=== PATIENT | male | born 1985 | race Hispanic/Latino ===

== ENCOUNTER 2018-01-18 09:12 | Emergency (ER) | payer SELFPAY ==
--- NOTE | 2018-01-18 12:41 | Emergency Department Report ---
Chief Complaint: Nausea/Vomiting/Diarrhea Stated Complaint: LIGHT HEAD/DIZZY Time Seen by Provider: 01/18/18 12:33 - HPI History of Present Illness: 32-year-old male with 1-2 days of nonspecific dizziness/lightheadedness. He also had a few episodes of diarrhea this morning. He denies any sore throat, fever, chest pain, shortness of breath, abdominal pain or rash. Tobacco smoker. was diagnosed with strep by rapid strep test here at [facility] on Thursday, 3 days ago. Patient also admits to a lot of stress at home and work that could be a cause of his symptoms. - ROS Review of Systems: Patient admits to stress, diarrhea and dizziness/lightheadedness Patient denies any chest pain, shortness of breath, fever, abdominal pain, rash , dysuria. - Exam Vital Signs: Vital Signs 01/18/18 09:47 Temperature 97.6 F Pulse Rate 89 Respiratory 16 Rate Blood Pressure 141/81 O2 Sat by Pulse 94 Oximetry MSE screening note: Focused history and physical exam performed. Due to findings the following was ordered: Due to the patient's dizziness/lightheadedness and his exposure to culture positive strep, the patient will receive a CBC, BMP and a rapid strep test. He will remain on the fast track side and will be seen by either myself or one of the mid-level providers. ED Disposition for MSE Condition: Stable Referrals: PRIMARY CARE, [Primary Care Provider] - 3-5 Days
[2018-01-18 13:03] LABS: Basophils % (Auto) 0.3 % (0.0-1.8); Eosinophils # (Auto) 0.1 K/mm3 (0.0-0.4); Hematocrit 42.5 % (35.5-45.6); Hemoglobin 13.9 gm/dl (11.8-15.2); Lymphocytes # (Auto) 3.3 K/mm3 (1.2-5.4); Lymphocytes % (Auto) 26.6 % (13.4-35.0); Mean Corpuscular HGB Conc 33 % (32-34); Mean Corpuscular Hemoglobin 28 pg (28-32); Mean Corpuscular Volume 86 fl (84-94); Monocytes # (Auto) 0.8 K/mm3 (0.0-0.8); Monocytes % (Auto) 6.9 % (0.0-7.3); Platelet Count 320 K/mm3 (140-440); Red Blood Count 4.96 M/mm3 (3.65-5.03); Red Cell Distribution Width 13.6 % (13.2-15.2)
[2018-01-18 13:14] LABS: BUN/Creatinine Ratio 14; Blood Urea Nitrogen 7 mg/dL (9-20); Calcium 8.9 mg/dL (8.4-10.2); Hemolysis Index 10
--- NOTE | 2018-01-18 13:31 | Emergency Department Report ---
ED N/V/D HPI - General Chief complaint: Nausea/Vomiting/Diarrhea Stated complaint: LIGHT HEAD/DIZZY Time Seen by Provider: 01/18/18 12:33 Source: patient Mode of arrival: Ambulatory Limitations: No Limitations - History of Present Illness Initial comments: 32-year-old male presents with complaint of exposure to strep throat and some intermittent dizziness and nausea earlier this week. Patient is currently awake alert and oriented 3 fully lucid and asymptomatic. Denies any nausea abdominal pain chest pain shortness of breath dizziness and lightheadedness blurry vision or headache at this time. Patient is administered without assistance. Patient screened and evaluated by Dr. Maynor frias today MD complaint: nausea, vomiting Onset/Timin -: week(s) Severity: mild Consistency: intermittent Worsens with: none Associated Symptoms: denies other symptoms - Related Data Previous Rx's Medication Instructions Recorded Last Taken Type Albuterol Sulfate [Ventolin HFA] 2 puff IH Q4H PRN #1 hfa.aer.ad 01/17/16 Unknown Rx Azithromycin [Zithromax] 250 mg PO DAILY #1 pkg 01/17/16 Unknown Rx Loratadine [Claritin] 10 mg PO DAILY #30 tablet 01/17/16 Unknown Rx Prednisone [predniSONE 10 mg 10 mg PO .TAPER #1 tab.ds.pk 01/17/16 Unknown Rx (6-Day Pack, 21 Tabs)] Promethazine /Codeine 5 ml PO Q6H PRN #150 ml 01/17/16 Unknown Rx [Phenergan/Codeine 6.25-10 mg/5 ml] Ondansetron [Zofran Odt] 4 mg PO Q8H PRN #10 tab.rapdis 01/18/18 Unknown Rx Allergies Allergy/AdvReac Type Severity Reaction Status Date / Time No Known Allergies Allergy Verified 01/17/16 01:00 ED Review of Systems ROS: Stated complaint: LIGHT HEAD/DIZZY Other details as noted in HPI Constitutional: denies: chills, fever Eyes: denies: eye pain, eye discharge, vision change ENT: denies: ear pain, throat pain Respiratory: denies: cough, shortness of breath, wheezing Cardiovascular: denies: chest pain, palpitations Endocrine: no symptoms reported Gastrointestinal: nausea. denies: abdominal pain, diarrhea Genitourinary: denies: urgency, dysuria Musculoskeletal: denies: back pain, joint swelling, arthralgia Skin: denies: rash, lesions Neurological: other (dizziness). denies: headache, weakness, paresthesias Psychiatric: denies: anxiety, depression Hematological/Lymphatic: denies: easy bleeding, easy bruising ED Past Medical Hx - Past Medical History Previous Medical History?: No - Surgical History Past Surgical History?: No - Social History Smoking Status: Current Every Day Smoker Substance Use Type: None - Medications Home Medications: Home Medications Medication Instructions Recorded Confirmed Last Taken Type Albuterol Sulfate [Ventolin HFA] 2 puff IH Q4H PRN #1 hfa.aer.ad 01/17/16 Unknown Rx Azithromycin [Zithromax] 250 mg PO DAILY #1 pkg 01/17/16 Unknown Rx Loratadine [Claritin] 10 mg PO DAILY #30 tablet 01/17/16 Unknown Rx Prednisone [predniSONE 10 mg 10 mg PO .TAPER #1 tab.ds.pk 01/17/16 Unknown Rx (6-Day Pack, 21 Tabs)] Promethazine /Codeine 5 ml PO Q6H PRN #150 ml 01/17/16 Unknown Rx [Phenergan/Codeine 6.25-10 mg/5 ml] Ondansetron [Zofran Odt] 4 mg PO Q8H PRN #10 tab.rapdis 01/18/18 Unknown Rx ED Physical Exam - General Limitations: No Limitations General appearance: alert, in no apparent distress - Head Head exam: Present: atraumatic, normocephalic - Eye Eye exam: Present: normal appearance, PERRL, EOMI - ENT ENT exam: Present: mucous membranes moist - Neck Neck exam: Present: normal inspection - Respiratory Respiratory exam: Present: normal lung sounds bilaterally. Absent: respiratory distress - Cardiovascular Cardiovascular Exam: Present: regular rate, normal rhythm. Absent: systolic murmur, diastolic murmur, rubs, gallop - GI/Abdominal GI/Abdominal exam: Present: soft, normal bowel sounds - Rectal Rectal exam: Present: deferred - Extremities Exam Extremities exam: Present: normal inspection - Back Exam Back exam: Present: normal inspection - Neurological Exam Neurological exam: Present: alert, oriented X3, CN II-XII intact, normal gait - Expanded Neurological Exam Expanded Patient oriented to: Present: person, place, time Cranial nerves: EOM's Intact: Normal, Facial Sensation: Normal Cerebellar function: Finger to Nose: Normal, Heel to Daniel: Normal, Romberg: Normal Sensory exam: Upper Extremity Light Touch: Normal, Lower Extremity Light Touch: Normal Motor strength exam: RUE: 5, LUE: 5, RLE: 5, LLE: 5 Best Eye Response ([place]): (4) open spontaneously Best Motor Response ([place]): (6) obeys commands Best Verbal Response ([place]): (5) oriented [place] Total: 15 - Psychiatric Psychiatric exam: Present: normal affect, normal mood - Skin Skin exam: Present: warm, dry, intact, normal color. Absent: rash ED Course Vital Signs 01/18/18 09:47 Temperature 97.6 F Pulse Rate 89 Respiratory 16 Rate Blood Pressure 141/81 O2 Sat by Pulse 94 Oximetry ED Medical Decision Making - Lab Data Result diagrams: 01/18/18 12:42 01/18/18 12:42 - Medical Decision Making A/P: Nausea 1-labs unremarkable, strep swab negative, Zofran when necessary 2-follow-up with primary care doctor Critical care attestation.: If time is entered above; I have spent that time in minutes in the direct care of this critically ill patient, excluding procedure time. ED Disposition Clinical Impression: Nausea & vomiting Qualifiers: Vomiting type: unspecified Vomiting Intractability: non-intractable Qualified Code(s): R11.2 - Nausea with vomiting, unspecified Disposition: DC-01 TO HOME OR SELFCARE Is pt being admited?: No Does the pt Need Aspirin: No Condition: Stable Instructions: Acute Nausea and Vomiting (ED) Prescriptions: Ondansetron [Zofran Odt] 4 mg PO Q8H PRN #10 tab.rapdis PRN Reason: Nausea Referrals: [facility] [Outside] - 3-5 Days [facility] [Outside] - 3-5 Days Forms: Accompanied Note, Work/School Release Form(ED) Time of Disposition: 13:57
[2018-01-18 14:04] VITALS: BP 157/79
== END 2018-01-18 14:04 | disposition home or self-care (01) ==
LOC: ED 09:12
DX: R11.2 Nausea with vomiting, unspecified (principal); R42 Dizziness and giddiness; F17.200 Nicotine dependence, unspecified, uncomplicated
CPT/HCPCS: 36415; 80048; 85025; 87116; 87430; 99283

== ENCOUNTER 2019-04-03 14:23 | Emergency (ER) | payer OTHER ==
[2019-04-03 14:47] VITALS: BP 174/102
--- NOTE | 2019-04-03 14:47 | Emergency Department Report ---
Chief Complaint: Abdominal Pain Stated Complaint: STOMACH PAIN/DIARRHEA/POSS WORMS Time Seen by Provider: 04/03/19 14:42 - HPI History of Present Illness: Pt presents for generalized abd pain that began a week ago states he has constant diarrhea no blood in the diarrhea states 10 minutes after he eats begins to have diarrhea no emesis no recent travel, no recent camping, no water from a different source, no recent abx states he has been taking pepto bismol no allergies to medications states he has been told he has high blood pressure, does not take medication denies any other PMHx does not have PCP former smoker, quit a year ago occ drinker no drug use MSE screening note: Focused history and physical exam performed. Due to findings the following was ordered: CBC, CMP, lipase ED Disposition for MSE Condition: Stable
--- NOTE | 2019-04-03 15:08 | Emergency Department Report ---
ED Abdominal Pain HPI - General Chief Complaint: Abdominal Pain Stated Complaint: STOMACH PAIN/DIARRHEA/POSS WORMS Time Seen by Provider: 04/03/19 14:42 Source: patient Mode of arrival: Ambulatory Limitations: No Limitations - History of Present Illness Initial Comments: Patient is 33 years old male with no significant past medical history. Patient presented to the ER complaining of crampy abdominal pain associated with watery diarrhea for the last 7 days. Patient denied any vomiting, fever or chills. Patient stated that he was never been diagnosed with high blood pressure however his blood pressure in the ER is 174/102. Patient denied any chest pain, shortness of breath, headache or weakness or numbness with tingling sensation. MD Complaint: abdominal pain -: week(s) Location: diffuse Radiation: none Migration to: no migration Severity: mild Severity scale (0 -10): 2 Quality: cramping Associated Symptoms: nausea, diarrhea - Related Data Previous Rx's Medication Instructions Recorded Last Taken Type Albuterol Sulfate [Ventolin HFA] 2 puff IH Q4H PRN #1 hfa.aer.ad 01/17/16 Unknown Rx Azithromycin [Zithromax] 250 mg PO DAILY #1 pkg 01/17/16 Unknown Rx Loratadine [Claritin] 10 mg PO DAILY #30 tablet 01/17/16 Unknown Rx Prednisone [predniSONE 10 mg 10 mg PO .TAPER #1 tab.ds.pk 01/17/16 Unknown Rx (6-Day Pack, 21 Tabs)] Promethazine /Codeine 5 ml PO Q6H PRN #150 ml 01/17/16 Unknown Rx [Phenergan/Codeine 6.25-10 mg/5 ml] Ondansetron [Zofran Odt] 4 mg PO Q8H PRN #10 tab.rapdis 01/18/18 Unknown Rx Allergies Allergy/AdvReac Type Severity Reaction Status Date / Time No Known Allergies Allergy Verified 01/17/16 01:00 ED Review of Systems ROS: Stated complaint: STOMACH PAIN/DIARRHEA/POSS WORMS Other details as noted in HPI Comment: All other systems reviewed and negative Constitutional: denies: chills, fever Respiratory: denies: cough, shortness of breath Cardiovascular: denies: chest pain, palpitations Gastrointestinal: abdominal pain, nausea, diarrhea. denies: constipation, hematemesis, hematochezia Musculoskeletal: denies: back pain Neurological: denies: headache, weakness ED Past Medical Hx - Past Medical History Previous Medical History?: No - Surgical History Past Surgical History?: No - Social History Smoking Status: Former Smoker Substance Use Type: Alcohol, Other - Medications Home Medications: Home Medications Medication Instructions Recorded Confirmed Last Taken Type Albuterol Sulfate [Ventolin HFA] 2 puff IH Q4H PRN #1 hfa.aer.ad 01/17/16 Unknown Rx Azithromycin [Zithromax] 250 mg PO DAILY #1 pkg 01/17/16 Unknown Rx Loratadine [Claritin] 10 mg PO DAILY #30 tablet 01/17/16 Unknown Rx Prednisone [predniSONE 10 mg 10 mg PO .TAPER #1 tab.ds.pk 01/17/16 Unknown Rx (6-Day Pack, 21 Tabs)] Promethazine /Codeine 5 ml PO Q6H PRN #150 ml 01/17/16 Unknown Rx [Phenergan/Codeine 6.25-10 mg/5 ml] Ondansetron [Zofran Odt] 4 mg PO Q8H PRN #10 tab.rapdis 01/18/18 Unknown Rx ED Physical Exam - General Limitations: No Limitations General appearance: alert, in no apparent distress - Head Head exam: Present: atraumatic, normocephalic, normal inspection - Eye Eye exam: Present: normal appearance - ENT ENT exam: Present: normal exam, normal orophraynx, mucous membranes moist - Neck Neck exam: Present: normal inspection, full ROM. Absent: tenderness, meningismus, lymphadenopathy, thyromegaly - Respiratory Respiratory exam: Present: normal lung sounds bilaterally - Cardiovascular Cardiovascular Exam: Present: regular rate, normal rhythm, normal heart sounds - GI/Abdominal GI/Abdominal exam: Present: soft, normal bowel sounds. Absent: distended, tenderness, guarding, rebound, rigid - Extremities Exam Extremities exam: Present: normal inspection, full ROM, normal capillary refill - Back Exam Back exam: Present: normal inspection, full ROM. Absent: CVA tenderness (R), CVA tenderness (L) - Neurological Exam Neurological exam: Present: alert, oriented X3, CN II-XII intact, normal gait - Skin Skin exam: Present: warm, intact, normal color ED Course Vital Signs 04/03/19 04/03/19 14:45 14:54 Temperature 98.7 F Pulse Rate 98 H Respiratory 20 17 Rate Blood Pressure 174/102 O2 Sat by Pulse 96 Oximetry ED Medical Decision Making - Lab Data Result diagrams: 04/03/19 15:08 04/03/19 15:08 - Medical Decision Making Patient is 33 years old male with no significant past medical history. Patient presented to the ER complaining of crampy abdominal pain associated with watery diarrhea for the last 7 days. Patient denied any vomiting, fever or chills. Patient stated that he was never been diagnosed with high blood pressure however his blood pressure in the ER is 174/102. Patient denied any chest pain, shortness of breath, headache or weakness or numbness with tingling sensation. Labs reviewed and is unremarkable. Patient's symptoms most likely related to gastroenteritis. I advised the patient to follow-up with his primary care physician in the next 2-3 days and to return to the ER if symptoms are not impr jorden. Critical care attestation.: If time is entered above; I have spent that time in minutes in the direct care of this critically ill patient, excluding procedure time. ED Disposition Clinical Impression: Abdominal pain, Gastroenteritis Disposition: DC-01 TO HOME OR SELFCARE Is pt being admited?: No Condition: Stable Instructions: Gastroenteritis (ED), Abdominal Pain (ED), Hypertension (ED) Referrals: [facility] [Provider Group] - 3-5 Days
[2019-04-03 15:25] LABS: Basophils % (Auto) 0.3 % (0.0-1.8); Eosinophils # (Auto) 0.1 K/mm3 (0.0-0.4); Eosinophils % (Auto) 0.6 % (0.0-4.3); Hematocrit 40.6 % (35.5-45.6); Hemoglobin 13.9 gm/dl (11.8-15.2); Lymphocytes # (Auto) 3.1 K/mm3 (1.2-5.4); Lymphocytes % (Auto) 35.6 % (13.4-35.0); Mean Corpuscular HGB Conc 34 % (32-34); Mean Corpuscular Volume 86 fl (84-94); Monocytes # (Auto) 0.8 K/mm3 (0.0-0.8); Monocytes % (Auto) 9.5 % (0.0-7.3); Platelet Count 315 K/mm3 (140-440); Red Blood Count 4.74 M/mm3 (3.65-5.03); Red Cell Distribution Width 12.9 % (13.2-15.2)
[2019-04-03 15:50] LABS: Alanine Aminotransferase 18 units/L (7-56); Albumin 3.2 g/dL (3.9-5); BUN/Creatinine Ratio 12; Blood Urea Nitrogen 6 mg/dL (9-20); Hemolysis Index 13
== END 2019-04-03 16:19 | disposition home or self-care (01) ==
LOC: ED 14:23
DX: K52.9 Noninfective gastroenteritis and colitis, unspecified (principal); Z87.891 Personal history of nicotine dependence; Z79.899 Other long term (current) drug therapy
CPT/HCPCS: 36415; 80053; 83690; 85025; 99283

== ENCOUNTER 2019-05-05 21:41 | Emergency (ER) | payer SELFPAY ==
[2019-05-05 22:53] VITALS: BP 163/94
[2019-05-06] MEDS ORDERED: BACTRIM DS PO ONE (00:27)
[2019-05-06] MEDS ORDERED: ZOFRAN ODT PO ONE ×2 (00:27→02:05)
[2019-05-06] MEDS ORDERED: XYLOCAINE 1% MPF 5 mL INFILTRATI ONE (00:27)
[2019-05-06] MEDS ORDERED: NORCO 5/325 PO ONE (00:27)
--- NOTE | 2019-05-06 01:36 | Emergency Department Report ---
Upper Extremity - HPI Chief Complaint: Extremity Injury, Upper Stated Complaint: RIGHT MIDDLE FINGER INJURY Time Seen by Provider: 05/06/19 00:15 Upper Extremity: Right Middle Finger (distal swollen rash) Occurred When: 4 Days Mechanism: Other (infected distal right middle finger) Severity: severe Symptoms: Yes Pain with Movement, Yes Swelling, No Deformity, No Limited Range of Movement, No Numbness, No Weakness, No Bruising/Ecchymosis, No Laceration or Abrasion Other History: Patient is a 33-year-old white male with a history of morbid obesity and hypertension who presents to the ED with complaint of acute onset and no swelling erythematous maculopapular rash on distal right middle finger for the last 4 days. Patient denies fever, chills, nausea, vomiting, traumatic injury, right hand weakness, or neck pain. ED Review of Systems ROS: Stated complaint: RIGHT MIDDLE FINGER INJURY Other details as noted in HPI Comment: All other systems reviewed and negative Constitutional: no symptoms reported Eyes: denies: eye pain, eye discharge, vision change ENT: denies: ear pain, throat pain Respiratory: denies: cough, shortness of breath, wheezing Cardiovascular: denies: chest pain, palpitations Endocrine: no symptoms reported Gastrointestinal: denies: abdominal pain, nausea, diarrhea Genitourinary: denies: urgency, dysuria Musculoskeletal: other (patient feels, swollen erythematous maculopapular rash on distal right middle finger). denies: back pain, joint swelling, arthralgia Skin: rash (swollen, erythematous macular papular rash on the Serevent middle finger), change in color. denies: lesions Neurological: denies: headache, weakness, paresthesias Psychiatric: denies: anxiety, depression Hematological/Lymphatic: denies: easy bleeding, easy bruising ED Past Medical Hx - Past Medical History Previous Medical History?: Yes Hx Hypertension: Yes Additional medical history: Obesity - Surgical History Past Surgical History?: No - Social History Smoking Status: Former Smoker Substance Use Type: None - Medications Home Medications: Home Medications Medication Instructions Recorded Confirmed Last Taken Type Albuterol Sulfate [Ventolin HFA] 2 puff IH Q4H PRN #1 hfa.aer.ad 01/17/16 Unknown Rx Azithromycin [Zithromax] 250 mg PO DAILY #1 pkg 01/17/16 Unknown Rx Loratadine [Claritin] 10 mg PO DAILY #30 tablet 01/17/16 Unknown Rx Prednisone [predniSONE 10 mg 10 mg PO .TAPER #1 tab.ds.pk 01/17/16 Unknown Rx (6-Day Pack, 21 Tabs)] Promethazine /Codeine 5 ml PO Q6H PRN #150 ml 01/17/16 Unknown Rx [Phenergan/Codeine 6.25-10 mg/5 ml] Ondansetron [Zofran Odt] 4 mg PO Q8H PRN #10 tab.rapdis 01/18/18 Unknown Rx Diphenoxylate/Atropine [Lomotil] 1 tab PO Q4H PRN #12 tablet 04/03/19 Unknown Rx Lisinopril/Hydrochlorothiazide 1 tab PO QDAY #30 tab 04/03/19 Unknown Rx [Zestoretic 20-25 mg] Acetaminophen/Codeine [Tylenol 1 tab PO Q6H PRN #15 tab 05/06/19 Unknown Rx /Codeine # 3 tab] Ibuprofen [Motrin] 800 mg PO Q8HR PRN #20 tablet 05/06/19 Unknown Rx Sulfamethoxazole/Trimethoprim 1 each PO Q12H #20 tablet 05/06/19 Unknown Rx [Bactrim DS TAB] Upper Extremity Exam - Exam General: Vital signs noted. No distress. Alert and acting appropriately. Head and Torso: No HEENT Abnormality, No Neck Tenderness, No Chest/Lungs Abnormality, No Abdominal Tenderness, No Back Tenderness Shoulder Exam: Yes Normal Range of Motion in Shoulder, No Shoulder Tenderness, No Clavicle Tenderness, No Shoulder Deformity, No AC Joint Tenderness Arm Exam: No Arm/Humerus Tenderness, No Arm Deformity Elbow: No Elbow Tenderness, No Normal Range of Motion in Elbow, No Elbow Deformity Forearm: No Forearm Tenderness, No Forearm Deformity, No Pain with Pronation, No Pain with Supination Wrist: Yes Normal ROM in Wrist, No Wrist Tenderness, No Wrist Deformity, No Snuffbox Tenderness, No Pain with Axial Thumb Compression Hand: Yes Digit Tenderness (right middle finger due to erythematous rash), Yes Normal ROM in Digit(s), No Hand Tenderness, No Hand Deformity, No Digit(s) Deformity, No Tendon Dysfunction CMS Exam: Yes Normal Distal Pulses, Yes Normal Capillary Refill, Yes Normal Distal Sensation, No Broken Skin ED Course Vital Signs 05/05/19 22:51 Temperature 98 F Pulse Rate 102 H Respiratory 20 Rate Blood Pressure 163/94 O2 Sat by Pulse 96 Oximetry - Reevaluation(s) Reevaluation #1: 05/06/19 01:37 Patient is alert and oriented 3 and is not in any distress but slightly tachycardic in triage. Patient was treated for pain in the ED and is obviously depressed also antibiotics by mouth. The swollen erythematous rash was incised and drained, and the patient tolerated the procedure well. Patient was discharged home on antibiotics and pain medications and advised to follow up with his primary care physician in 5-7 days for reevaluation or return to the ED immediately if symptoms get worse. 05/06/19 01:37 - I & D Right Dorsal Finger Type of Procedure: Simple Site: distal right middle finger Blade Size: 11 I & D Procedure: betadine prep, sterile drapes applied, sterile dressing applied, gauze wick placed Progress: Patient tolerated procedure well. ED Medical Decision Making - Medical Decision Making Patient is alert and oriented 3 and is not in any distress but slightly tachycardic in triage. Patient was treated for pain in the ED and is obviously depressed also antibiotics by mouth. The swollen erythematous rash was incised and drained, and the patient tolerated the procedure well. Patient was discharged home on antibiotics and pain medications and advised to follow up with his primary care physician in 5-7 days for reevaluation or return to the ED immediately if symptoms get worse. - Differential Diagnosis Paronychia of right middle ; Cellulitis of right finger Critical care attestation.: If time is entered above; I have spent that time in minutes in the direct care of this critically ill patient, excluding procedure time. ED Disposition Clinical Impression: Paronychia of right middle finger, Cellulitis of right middle finger Disposition: DC-01 TO HOME OR SELFCARE Is pt being admited?: No Does the pt Need Aspirin: No Condition: Stable Instructions: Paronychia (ED), Cellulitis (ED) Additional Instructions: Take Medications with food, drink plenty of fluids and follow up with your primary care physician in 7-10 days for reevaluation. Return to the ED immediately if symptoms get worse. Otherwise return to the ED in 2 days for wound recheck and packing removal. Prescriptions: Sulfamethoxazole/Trimethoprim [Bactrim DS TAB] 1 each PO Q12H #20 tablet Ibuprofen [Motrin] 800 mg PO Q8HR PRN #20 tablet PRN Reason: Pain , Severe (7-10) Acetaminophen/Codeine [Tylenol /Codeine # 3 tab] 1 tab PO Q6H PRN #15 tab PRN Reason: Pain , Severe (7-10) Referrals: PILO GILLIAM MD [Primary Care Provider] - 3-5 Days Time of Disposition: 02:47 Print Language: FAROESE
== END 2019-05-06 03:00 | disposition home or self-care (01) ==
LOC: ED 21:41
DX: L03.011 Cellulitis of right finger (principal); I10 Essential (primary) hypertension; E66.01 Morbid (severe) obesity due to excess calories; Z68.43 Body mass index [BMI] 50.0-59.9, adult; Z87.891 Personal history of nicotine dependence
CPT/HCPCS: Q0162

== ENCOUNTER 2019-10-03 18:26 | Emergency (ER) | payer SELFPAY ==
--- NOTE | 2019-10-03 19:11 | Emergency Department Report ---
Blank Doc - Documentation Documentation: This is a 33-year-old male that presents with left finger paronychia. This initial assessment/diagnostic orders/clinical plan/treatment(s) is/are subject to change based on patient's health status, clinical progression and re- assessment by fellow clinical providers in the ED. Further treatment and workup at subsequent clinical providers discretion. Patient/guardians urged not to elope from the ED as their condition may be serious if not clinically assessed and managed. Initial orders include: 1- Patient sent to [facility] for further evaluation and treatment
[2019-10-03] MEDS ORDERED: oxyCODONE /ACETAMINOPHEN 5-325MG TAB PO ONE (22:20)
[2019-10-03] MEDS ORDERED: ONDANSETRON 4 MG ODT TAB PO ONE (22:20)
[2019-10-03] MEDS ORDERED: LIDOCAINE-MPF (1%) 10 MG/1 ML VIAL 5 ML INFILTRATI ONE (22:20)
[2019-10-03] MEDS ORDERED: SULFAMETHOXAZOLE/TRIMETHOPRIM 800/160MG DS TAB PO ONE (22:20)
[2019-10-04] MEDS ORDERED: ONDANSETRON 4 MG ODT TAB PO ONE (01:38)
[2019-10-04] MEDS ORDERED: ONDANSETRON 4 MG ODT TAB ONE (01:39)
--- NOTE | 2019-10-04 02:04 | Emergency Department Report ---
ED Extremity Problem HPI - General Chief complaint: Extremity Problem,Nontraumatic Stated complaint: FINGER/INFECTED/SWOLLEN Time Seen by Provider: 10/03/19 19:09 Source: patient Mode of arrival: Ambulatory Limitations: No Limitations - History of Present Illness Initial comments: Patient is a 33-year-old morbidly obese white male who presents to the ED with Caro of acute onset persistent painful swollen and erythematous maculopapular rash on distal left middle finger for the last 1 week after a contaminated knife at work punctured his distal left middle finger. Patient states that in the last 3 days the pain and swelling with redness have worsened in the left middle finger. Patient denies fever, chills, nausea, vomiting, numbness and tingling or weakness of left middle finger, dizziness or shortness of breath. MD Complaint: extremity pain (left middle finger pain, swelling with erythematous rash), extremity swelling (left middle finger erythematous rash with pain and swelling), joint swelling -: Sudden, week(s) (1) Location: left, upper extremity (left middle finger swelling, erythematous rash and pain) History of Same: Yes -: Yes arthralgia, No fever, No associated dyspnea, No associated chest pain Severity scale (0 -10): 7 Quality: aching, sharp, constant Consistency: constant Improves with: nothing Worsens with: nothing Associated Symptoms: denies other symptoms. denies: chest pain, shortness of breath, myalgias, arthralgias - Related Data Previous Rx's Medication Instructions Recorded Last Taken Type Albuterol Sulfate [Ventolin HFA] 2 puff IH Q4H PRN #1 hfa.aer.ad 01/17/16 Unknown Rx Azithromycin [Zithromax] 250 mg PO DAILY #1 pkg 01/17/16 Unknown Rx Loratadine [Claritin] 10 mg PO DAILY #30 tablet 01/17/16 Unknown Rx Prednisone [predniSONE 10 mg 10 mg PO .TAPER #1 tab.ds.pk 01/17/16 Unknown Rx (6-Day Pack, 21 Tabs)] Promethazine /Codeine 5 ml PO Q6H PRN #150 ml 01/17/16 Unknown Rx [Phenergan/Codeine 6.25-10 mg/5 ml] Ondansetron [Zofran Odt] 4 mg PO Q8H PRN #10 tab.rapdis 01/18/18 Unknown Rx Diphenoxylate/Atropine [Lomotil] 1 tab PO Q4H PRN #12 tablet 04/03/19 Unknown Rx Lisinopril/Hydrochlorothiazide 1 tab PO QDAY #30 tab 04/03/19 Unknown Rx [Zestoretic 20-25 mg] Acetaminophen/Codeine [Tylenol 1 tab PO Q6H PRN #12 tab 10/04/19 Unknown Rx /Codeine # 3 tab] Ibuprofen [Motrin 800 MG tab] 800 mg PO Q8HR PRN #24 tablet 10/04/19 Unknown Rx Sulfamethoxazole/Trimethoprim 1 each PO Q12H #20 tablet 10/04/19 Unknown Rx [Bactrim DS TAB] Allergies Allergy/AdvReac Type Severity Reaction Status Date / Time No Known Allergies Allergy Verified 01/17/16 01:00 ED Review of Systems ROS: Stated complaint: FINGER/INFECTED/SWOLLEN Other details as noted in HPI Constitutional: denies: chills, fever Eyes: denies: eye pain, eye discharge, vision change ENT: denies: ear pain, throat pain Respiratory: denies: cough, shortness of breath, wheezing Cardiovascular: denies: chest pain, palpitations Endocrine: no symptoms reported Gastrointestinal: denies: abdominal pain, nausea, vomiting, diarrhea Genitourinary: denies: urgency, dysuria Musculoskeletal: joint swelling, arthralgia (distal left middle finger pain due to erythematous rash). denies: back pain Skin: rash (erythematous swollen painful rash on distal left middle finger). denies: lesions Neurological: denies: headache, weakness, paresthesias Psychiatric: denies: anxiety, depression Hematological/Lymphatic: denies: easy bleeding, easy bruising ED Past Medical Hx - Past Medical History Previous Medical History?: Yes Hx Hypertension: Yes Additional medical history: Obesity - Surgical History Past Surgical History?: No - Social History Smoking Status: Current Some Day Smoker Substance Use Type: Alcohol - Medications Home Medications: Home Medications Medication Instructions Recorded Confirmed Last Taken Type Albuterol Sulfate [Ventolin HFA] 2 puff IH Q4H PRN #1 hfa.aer.ad 01/17/16 Unknown Rx Azithromycin [Zithromax] 250 mg PO DAILY #1 pkg 01/17/16 Unknown Rx Loratadine [Claritin] 10 mg PO DAILY #30 tablet 01/17/16 Unknown Rx Prednisone [predniSONE 10 mg 10 mg PO .TAPER #1 tab.ds.pk 01/17/16 Unknown Rx (6-Day Pack, 21 Tabs)] Promethazine /Codeine 5 ml PO Q6H PRN #150 ml 01/17/16 Unknown Rx [Phenergan/Codeine 6.25-10 mg/5 ml] Ondansetron [Zofran Odt] 4 mg PO Q8H PRN #10 tab.rapdis 01/18/18 Unknown Rx Diphenoxylate/Atropine [Lomotil] 1 tab PO Q4H PRN #12 tablet 04/03/19 Unknown Rx Lisinopril/Hydrochlorothiazide 1 tab PO QDAY #30 tab 04/03/19 Unknown Rx [Zestoretic 20-25 mg] Acetaminophen/Codeine [Tylenol 1 tab PO Q6H PRN #12 tab 10/04/19 Unknown Rx /Codeine # 3 tab] Ibuprofen [Motrin 800 MG tab] 800 mg PO Q8HR PRN #24 tablet 10/04/19 Unknown Rx Sulfamethoxazole/Trimethoprim 1 each PO Q12H #20 tablet 10/04/19 Unknown Rx [Bactrim DS TAB] ED Physical Exam - General Limitations: No Limitations General appearance: alert, in no apparent distress - Head Head exam: Present: atraumatic, normocephalic, normal inspection - Eye Eye exam: Present: normal appearance, PERRL, EOMI - ENT ENT exam: Present: normal exam, normal orophraynx, mucous membranes moist, TM's normal bilaterally, normal external ear exam - Neck Neck exam: Present: normal inspection, full ROM - Respiratory Respiratory exam: Present: normal lung sounds bilaterally. Absent: respiratory distress, wheezes, rales, rhonchi, chest wall tenderness, accessory muscle use, decreased breath sounds, prolonged expiratory - Cardiovascular Cardiovascular Exam: Present: normal rhythm, tachycardia, normal heart sounds. Absent: systolic murmur, diastolic murmur, rubs, gallop - GI/Abdominal GI/Abdominal exam: Present: soft, normal bowel sounds. Absent: distended, tenderness, guarding, hyperactive bowel sounds, hypoactive bowel sounds - Extremities Exam Extremities exam: Present: normal inspection, full ROM, normal capillary refill - Back Exam Back exam: Present: normal inspection, full ROM. Absent: CVA tenderness (L), muscle spasm, paraspinal tenderness - Neurological Exam Neurological exam: Present: alert, oriented X3, CN II-XII intact, normal gait, reflexes normal - Psychiatric Psychiatric exam: Present: normal affect, normal mood - Skin Skin exam: Present: warm, dry, intact, normal color, rash (erythematous swollen fluctuant rash on distal left middle finger), erythema ED Course Vital Signs 10/03/19 10/03/19 10/03/19 19:10 22:50 23:34 Temperature 98.4 F Pulse Rate 104 H Respiratory 20 20 20 Rate Blood Pressure 173/112 O2 Sat by Pulse 95 Oximetry - I & D Left Distal Finger Type of Procedure: Simple Site: Distal left middle finger Blade Size: 11 I & D Procedure: betadine prep, sterile drapes applied, sterile dressing applied, gauze wick placed Progress: Patient tolerated the procedure well after being treated for pain. The wound was cleaned thoroughly and sterile gauze packing applied. The wound was then dressed appropriately. The patient discharged home on pain medications and oral antibiotics. Patient was advised to return to the ED immediately if symptoms get worse. Otherwise the patient was advised to follow-up with his primary care physician in 7-10 days for reevaluation. ED Medical Decision Making - Medical Decision Making This is a 33-year-old male who presented to the ED with painful swollen and erythematous rash on distal left middle finger for the last 1 week. In the ED, patient is alert and oriented 3 and is not in distress. Patient was treated for pain and given initial oral antibiotics. The left middle finger erythematous rash was incised and drained per protocol and the patient tolerated the procedure well. The wound was then dressed appropriately and the patient discharged home on pain medications and antibiotics and was advised to return to the ED immediately if symptoms get worse, otherwise follow-up with her primary care physician in 7-10 days for reevaluation. - Differential Diagnosis paronychia of left middle finger; Cellulitis of left middle finger Critical care attestation.: If time is entered above; I have spent that time in minutes in the direct care of this critically ill patient, excluding procedure time. ED Disposition Clinical Impression: Cellulitis of left middle finger, Paronychia of left middle finger Disposition: TO HOME OR SELFCARE Is pt being admited?: No Does the pt Need Aspirin: No Condition: Stable Instructions: Paronychia (ED), Cellulitis (ED) Additional Instructions: Take medications with food, drink plenty of fluids and follow up with your primary care physician in 7-10 days for reevaluation. Return to the ED immediately if symptoms get worse. Prescriptions: Sulfamethoxazole/Trimethoprim [Bactrim DS TAB] 1 each PO Q12H #20 tablet Ibuprofen [Motrin 800 MG tab] 800 mg PO Q8HR PRN #24 tablet PRN Reason: Pain , Severe (7-10) Acetaminophen/Codeine [Tylenol /Codeine # 3 tab] 1 tab PO Q6H PRN #12 tab PRN Reason: Pain , Severe (7-10) Referrals: PRIMARY CARE,MD [Primary Care Provider] - 3-5 Days Forms: Work/School Release Form(ED) Time of Disposition: 02:04 Print Language: TONGAN
[2019-10-04 02:47] VITALS: BP 140/87
== END 2019-10-04 02:45 | disposition home or self-care (01) ==
LOC: ED 18:26
DX: L03.012 Cellulitis of left finger (principal); I10 Essential (primary) hypertension; E66.9 Obesity, unspecified; F17.200 Nicotine dependence, unspecified, uncomplicated; Z79.899 Other long term (current) drug therapy
CPT/HCPCS: Q0162

== ENCOUNTER 2021-05-21 11:00 | Emergency (ER) | payer SELFPAY ==
[2021-05-21 11:59] LABS: Basophils % (Auto) 0.4 % (0.0-1.8); Eosinophils # (Auto) 0.1 K/mm3 (0.0-0.4); Eosinophils % (Auto) 0.5 % (0.0-4.3); Hematocrit 43.3 % (35.5-45.6); Hemoglobin 14.2 gm/dl (11.8-15.2); Lymphocytes # (Auto) 3.1 K/mm3 (1.2-5.4); Lymphocytes % (Auto) 25.9 % (13.4-35.0); Mean Corpuscular HGB Conc 33 % (32-34); Mean Corpuscular Volume 86 fl (84-94); Monocytes # (Auto) 0.9 K/mm3 (0.0-0.8); Monocytes % (Auto) 7.7 % (0.0-7.3); Platelet Count 308 K/mm3 (140-440); Red Blood Count 5.01 M/mm3 (3.65-5.03); Red Cell Distribution Width 13.6 % (13.2-15.2)
[2021-05-21 12:25] LABS: Alanine Aminotransferase 18 units/L (7-56); Albumin 3.6 g/dL (3.9-5); Blood Urea Nitrogen 11 mg/dL (9-20); Calcium 9.6 mg/dL (8.4-10.2); Hemolysis Index 13
[2021-05-21 12:26] LABS: BUN/Creatinine Ratio 16
[2021-05-21] MEDS ORDERED: SODIUM CHLORIDE 0.9% 1000 ML 2,000 ML IV ONE (12:28)
[2021-05-21] MEDS ORDERED: SODIUM CHLORIDE 0.9% 1000 ML 1,000 ML IV ONE (12:30)
--- NOTE | 2021-05-21 12:30 | Emergency Department Report ---
ED Abdominal Pain HPI - General Chief Complaint: Abdominal Pain Stated Complaint: PAIN IN LOWER BACK SIDE Time Seen by Provider: 05/21/21 12:12 Source: patient Mode of arrival: Ambulatory Limitations: No Limitations - History of Present Illness Initial Comments: 35-year-old male with a past medical history of hypertension but noncompliant with his medication presents to the ER today with complaints of abdominal pain. Patient states that 2 days ago he started having pain in his lower abdomen and lower back and then this morning started having pain in his right flank area. He states that the pain to his lower back has been constant, but the pain to the lower abdomen and right flank area has been intermittent. He reports nausea but no vomiting. Patient states that he has been feeling constipated. He has had a good bowel movement for the past 2 days. He did drink prune juice yesterday but only produced small amount of stool. He denies any hematochezia, melena or mucus in the stool. He states that it is not typical for him to have consti pation, he typically has a bowel movement 3 times a day. He denies any UTI symptoms, fever or chills. He denies any abdominal surgeries in the past. MD Complaint: abdominal pain -: days(s) (2) - Related Data Previous Rx's Medication Instructions Recorded Last Taken Type Lisinopril/Hydrochlorothiazide 1 tab PO QDAY #30 tab 04/03/19 Unknown Rx [Zestoretic 20-25 mg] Docusate Sodium [Colace] 100 mg PO BID #30 capsule 05/21/21 Unknown Rx Ondansetron [Zofran Odt] 4 mg PO Q8HR PRN #12 tab.rapdis 05/21/21 Unknown Rx metFORMIN [Glucophage] 500 mg PO BID #60 tablet 05/21/21 Unknown Rx polyethylene glycoL 3350 [Miralax 17 gm PO BID 7 Days #14 packet 05/21/21 Unknown Rx 3350] Allergies Allergy/AdvReac Type Severity Reaction Status Date / Time No Known Allergies Allergy Verified 01/17/16 01:00 ED Review of Systems ROS: Stated complaint: PAIN IN LOWER BACK SIDE Other details as noted in HPI Comment: All other systems reviewed and negative Constitutional: denies: chills, fever Eyes: denies: eye pain, eye discharge, vision change ENT: denies: ear pain, throat pain, dental pain, hearing loss, congestion Respiratory: denies: cough, shortness of breath, wheezing Cardiovascular: denies: chest pain, palpitations, dyspnea on exertion, edema, syncope, paroxysmal nocturnal dyspnea Gastrointestinal: abdominal pain, nausea, constipation Genitourinary: denies: urgency, dysuria, frequency, hematuria, discharge, testicular pain, testicular mass Musculoskeletal: back pain. denies: joint swelling, arthralgia Skin: denies: change in color, change in hair/nails, pruritus Neurological: denies: headache, weakness, numbness, paresthesias, confusion, abnormal gait Psychiatric: denies: anxiety, depression, auditory hallucinations, visual hallucinations, homicidal thoughts, suicidal thoughts Hematological/Lymphatic: denies: easy bleeding, easy bruising, swollen glands ED Past Medical Hx - Past Medical History Previous Medical History?: Yes Hx Hypertension: Yes Additional medical history: Obesity - Surgical History Past Surgical History?: Yes Additional Surgical History: right leg surgery - Social History Smoking Status: Current Some Day Smoker Substance Use Type: Alcohol - Medications Home Medications: Home Medications Medication Instructions Recorded Confirmed Last Taken Type Lisinopril/Hydrochlorothiazide 1 tab PO QDAY #30 tab 04/03/19 Unknown Rx [Zestoretic 20-25 mg] Docusate Sodium [Colace] 100 mg PO BID #30 capsule 05/21/21 Unknown Rx Ondansetron [Zofran Odt] 4 mg PO Q8HR PRN #12 tab.rapdis 05/21/21 Unknown Rx metFORMIN [Glucophage] 500 mg PO BID #60 tablet 05/21/21 Unknown Rx polyethylene glycoL 3350 [Miralax 17 gm PO BID 7 Days #14 packet 05/21/21 Unknown Rx 3350] ED Physical Exam - General Limitations: No Limitations General appearance: alert, in no apparent distress, obese - Head Head exam: Present: atraumatic, normocephalic, normal inspection - Eye Eye exam: Present: normal appearance, PERRL, EOMI Pupils: Present: normal accommodation - Neck Neck exam: Present: normal inspection, full ROM - Respiratory Respiratory exam: Present: normal lung sounds bilaterally. Absent: respiratory distress - Cardiovascular Cardiovascular Exam: Present: regular rate, normal rhythm, normal heart sounds - GI/Abdominal GI/Abdominal exam: Present: soft, tenderness (TTP diffusely across the lower abdomen but mainly in the suprapubic area but no guarding or rebound.). Absent: distended, guarding, rebound - Back Exam Back exam: Present: normal inspection. Absent: full ROM, CVA tenderness (R), CVA tenderness (L), paraspinal tenderness, vertebral tenderness - Neurological Exam Neurological exam: Present: alert, oriented X3, CN II-XII intact, normal gait - Psychiatric Psychiatric exam: Present: normal mood - Skin Skin exam: Present: intact ED Course Vital Signs 05/21/21 05/21/21 11:09 14:50 Temperature 98.4 F Pulse Rate 102 H 70 Respiratory 20 16 Rate Blood Pressure 152/90 Blood Pressure 137/72 [Left] O2 Sat by Pulse 99 99 Oximetry ED Medical Decision Making - Lab Data Result diagrams: 05/21/21 11:41 05/21/21 11:41 - Radiology Data Patient: INDRA TANNER MR#: [id number] : 1985 Acct:[id number] Age/Sex: 35 / M ADM Date: 05/21/21 Loc: ED Attending Dr: Ordering Physician: BEBETO BOX Date of Service: 05/21/21 Procedure(s): CT abdomen pelvis w con Accession Number(s): [id number] cc: BEBETO BOX CT ABDOMEN AND PELVIS WITH CONTRAST INDICATION / CLINICAL INFORMATION: Lower abd pain/lower back pain 100 ml omni 300 . TECHNIQUE: Axial CT images were obtained through the abdomen and pelvis after 100 cc of Omnipaque [address] scans at this location are performed using CT dose reduction for ALARA by means of automated exposure control. COMPARISON : None available. FINDINGS: LOWER CHEST: No significant abnormality. LIVER: No significant abnormality. GALLBLADDER: No significant abnormality. BILE DUCTS: No significant abnormality. PANCREAS: No significant abnormality. SPLEEN: No significant abnormality. ADRENALS: No significant abnormality. RIGHT KIDNEY / URETER: No significant abnormality. LEFT KIDNEY / URETER: No significant abnormality. STOMACH / SMALL BOWEL: No significant abnormality. COLON: No significant abnormality. APPENDIX: No significant abnormality. PERITONEUM: No free fluid. No free air. No fluid collection. LYMPH NODES: No significant adenopathy. AORTA / ARTERIES: No significant abnormality. IVC / VEINS: No significant abnormality. URINARY BLADDER: No significant abnormality. REPRODUCTIVE ORGANS: No significant abnormality. ADDITIONAL FINDINGS: None. SKELETAL SYSTEM: No acute abnormality. IMPRESSION: 1. No acute abnormality. There is no obstruction, inflammation, or free air. Signer Name: Gerald Fair MD Signed: 05/21/2021 1:52 PM Workstation Name: [id number] Transcribed By: Dictated By: Gerald Fair MD Electronically Authenticated By: Gerald Fair MD Signed Date/Time: 05/21/21 1352 DD/ 1343 TD/TT: - Medical Decision Making Labs reviewed --CBC shows mild leukocytosis with a white count of 12 otherwise unremarkable, CMP shows a blood glucose of 428, mild hyponatremia with a sodium of 130 likely secondary to his hyperglycemia and hypochloremia with chloride of 92.2 but no evidence of DKA. Urinalysis reviewed and shows no UTI. CT abdomen pelvis with IV contrast shows nothing acute. Fingerstick blood sugar repeated after 1 L of IV fluids and it did improve to 282. Repeat vital signs stable. Patient currently seen up in the bed, on his phone does not appear to be in any acute distress. He is not toxic or ill-appearing. He is mentally stable, neurologically intact with a normal gait. Discussed lab and CT results with patient. Discussed diagnosis of type 2 diabetes with patient. Patient will be started on metformin, he will also be discharged home with medication to help with possible constipation. Patient states that he has an outpatient follow-up with [facility] this Thursday. Recommend that patient keeps his ap pointment for this Thursday so that they can continue monitoring his blood sugar and his blood pressure. Patient expressed understanding of instructions and agree with plan. Patient stable at time of discharge. Critical care attestation.: If time is entered above; I have spent that time in minutes in the direct care of this critically ill patient, excluding procedure time. ED Disposition Clinical Impression: Abdominal pain, Constipation, New onset type 2 diabetes mellitus Disposition: - TO HOME OR SELFCARE Is pt being admited?: No Does the pt Need Aspirin: No Condition: Stable Instructions: Type 2 Diabetes Mellitus, Diagnosis, Adult, Constipation, Adult, [id number], Abdominal Pain, Adult, [id number], Carbohydrate Counting for Diabetes Mellitus, Adult, Blood Glucose Monitoring, Adult, Diabetes Mellitus Type 2 in Adults (ED) Additional Instructions: I recommend that you take the Metformin as prescribed. Recommend that you take the Dulcolax and the MiraLAX as prescribed to help with any constipation. You can take Tylenol and ibuprofen to help with pain. Recommend lots of water and high-fiber diet. It is very important given your diagnosis of diabetes that you follow-up closely with the primary care doctor listed on your discharge instructions for continued monitoring of your blood sugar and your blood pressure. Return to the ER if your symptoms changes or worsens in any way. Prescriptions: Docusate Sodium [Colace] 100 mg PO BID #30 capsule metFORMIN [Glucophage] 500 mg PO BID #60 tablet polyethylene glycoL 3350 [Miralax 3350] 17 gm PO BID 7 Days #14 packet Ondansetron [Zofran Odt] 4 mg PO Q8HR PRN #12 tab.rapdis PRN Reason: Nausea/vomiting Referrals: JERMAINE KENDRICK MD [Staff Physician] - 3-5 Days [facility] [Provider Group] - 3-5 Days Forms: Work/School Release Form(ED) Time of Disposition: 15:04
[2021-05-21 13:39] LABS: Bilirubin,Urine NEG (Negative); Blood,Urine NEG (Negative); Color,Urine Straw (Yellow); Mucus,Urine FEW /HPF; Protein,Urine <15 mg/dL mg/dL (Negative); Urobilinogen,Urine < 2.0 mg/dL (<2.0)
--- NOTE | 2021-05-21 13:56 | Cat Scan Report ---
CT ABDOMEN AND PELVIS WITH CONTRAST INDICATION / CLINICAL INFORMATION: Lower abd pain/lower back pain 100 ml omni 300 . TECHNIQUE: Axial CT images were obtained through the abdomen and pelvis after 100 cc of Omnipaque [address] scans at this location are performed using CT dose reduction for ALARA by means of automated exposure control. COMPARISON : None available. FINDINGS: LOWER CHEST: No significant abnormality. LIVER: No significant abnormality. GALLBLADDER: No significant abnormality. BILE DUCTS: No significant abnormality. PANCREAS: No significant abnormality. SPLEEN: No significant abnormality. ADRENALS: No significant abnormality. RIGHT KIDNEY / URETER: No significant abnormality. LEFT KIDNEY / URETER: No significant abnormality. STOMACH / SMALL BOWEL: No significant abnormality. COLON: No significant abnormality. APPENDIX: No significant abnormality. PERITONEUM: No free fluid. No free air. No fluid collection. LYMPH NODES: No significant adenopathy. AORTA / ARTERIES: No significant abnormality. IVC / VEINS: No significant abnormality. URINARY BLADDER: No significant abnormality. REPRODUCTIVE ORGANS: No significant abnormality. ADDITIONAL FINDINGS: None. SKELETAL SYSTEM: No acute abnormality. IMPRESSION: 1. No acute abnormality. There is no obstruction, inflammation, or free air. Signer Name: Gerald Fair MD Signed: 05/21/2021 1:52 PM Workstation Name: [id number]
[2021-05-21 14:52] VITALS: BP 137/72
== END 2021-05-21 15:44 | disposition home or self-care (01) ==
LOC: ED 11:00
DX: K59.00 Constipation, unspecified (principal); R10.31 Right lower quadrant pain; M54.5 Low back pain; E11.9 Type 2 diabetes mellitus without complications; I10 Essential (primary) hypertension; F17.200 Nicotine dependence, unspecified, uncomplicated; Z72.89 Other problems related to lifestyle; Z79.899 Other long term (current) drug therapy
CPT/HCPCS: 36415; 74177; 80053; 81001; 82962; 83690; 83735; 85025; 96360; 99284; J7030; Q9967

== ENCOUNTER 2022-07-06 14:57 | Emergency (ER) | payer SELFPAY ==
[2022-07-06 15:39] VITALS: BP 161/77
[2022-07-06] MEDS ORDERED: ASPIRIN 325 MG TAB PO ONE (15:40)
--- NOTE | 2022-07-06 16:29 | XRay Report ---
CHEST 2 VIEWS INDICATION / CLINICAL INFORMATION: chest pain. COMPARISON: Prior radiographs from 2016 could not be retrieved for comparison. FINDINGS: SUPPORT DEVICES: None. HEART / MEDIASTINUM: No significant abnormality. LUNGS / PLEURA: No significant pulmonary or pleural abnormality. No pneumothorax. ADDITIONAL FINDINGS: No significant additional findings. IMPRESSION: 1. No acute findings. Signer Name: Rachel Carpenter MD Signed: 07/06/2022 4:25 PM Workstation Name: [id number]
[2022-07-06 17:08] LABS: Basophils % (Auto) 0.3 % (0.0-1.8); Eosinophils # (Auto) 0.1 K/mm3 (0.0-0.4); Hematocrit 39.6 % (35.5-45.6); Hemoglobin 13.1 gm/dl (11.8-15.2); Lymphocytes # (Auto) 2.8 K/mm3 (1.2-5.4); Lymphocytes % (Auto) 27.7 % (13.4-35.0); Mean Corpuscular HGB Conc 33 % (32-34); Mean Corpuscular Volume 86 fl (84-94); Monocytes # (Auto) 0.8 K/mm3 (0.0-0.8); Monocytes % (Auto) 7.5 % (0.0-7.3); Platelet Count 296 K/mm3 (140-440); Red Blood Count 4.62 M/mm3 (3.65-5.03); Red Cell Distribution Width 13.1 % (13.2-15.2)
[2022-07-06 17:35] LABS: Alanine Aminotransferase 16 units/L (7-56); Albumin 3.5 g/dL (3.9-5); BUN/Creatinine Ratio 14; Blood Urea Nitrogen 7 mg/dL (9-20); Hemolysis Index 2
--- NOTE | 2022-07-07 00:50 | Emergency Department Report ---
ED Chest Pain HPI - General Chief Complaint: Chest Pain Stated Complaint: CHEST PAINS Time Seen by Provider: 07/07/22 00:41 Source: patient Mode of arrival: Ambulatory Limitations: No Limitations - History of Present Illness Initial Comments: 36-year-old male with history of obesity and diabetes presents to the emergency department with left-sided chest pain since 10:30 AM on Thursday. Patient believes that the pain is musculoskeletal, because when he moves his arm the pain gets worse. Patient describes the pain as a mild, crampy pain. The pain is nonradiating. Patient denies shortness of breath, palpitations, lower extremity edema or pain. Patient denies any other symptoms. Patient reports similar symptoms in the past secondary to musculoskeletal pain. Patient states that the pain is still there, but is very mild, and does not want any pain medication, now. Patient denies any known alleviating factors, but does report that movement and palpation makes the pain worse. Severity scale (0 -10): 8 - Related Data Previous Rx's Medication Instructions Recorded Last Taken Type Lisinopril/Hydrochlorothiazide 1 tab PO QDAY #30 tab 04/03/19 Unknown Rx [Zestoretic 20-25 mg] Docusate Sodium [Colace] 100 mg PO BID #30 capsule 05/21/21 Unknown Rx Ondansetron [Zofran Odt] 4 mg PO Q8HR PRN #12 tab.rapdis 05/21/21 Unknown Rx metFORMIN [Glucophage] 500 mg PO BID #60 tablet 05/21/21 Unknown Rx polyethylene glycoL 3350 [Miralax 17 gm PO BID 7 Days #14 packet 05/21/21 Unknown Rx 3350] Allergies Allergy/AdvReac Type Severity Reaction Status Date / Time No Known Allergies Allergy Verified 01/17/16 01:00 Heart Score - HEART Score History: Slightly suspicious EKG: Non-specific Age: < 45 Risk factors: 1-2 risk factors Troponin: < normal limit HEART Score: 2 - EKG Read Time Time EKG Completed: 15:56 EKG Read Time: 16:01 - Critical Actions Critical Actions: 0-3 pts:0.9-1.7%risk of adverse cardiac event.Candidate for discharge ED Review of Systems ROS: Stated complaint: CHEST PAINS Other details as noted in HPI Comment: All other systems reviewed and negative Constitutional: denies: chills, fever Eyes: denies: eye pain, eye discharge, vision change ENT: denies: ear pain, throat pain Respiratory: denies: cough, shortness of breath, wheezing Cardiovascular: chest pain. denies: palpitations Endocrine: no symptoms reported Gastrointestinal: denies: abdominal pain, nausea, diarrhea Genitourinary: denies: urgency, dysuria Musculoskeletal: denies: back pain, joint swelling, arthralgia Skin: denies: rash, lesions Neurological: denies: headache, weakness, paresthesias Psychiatric: denies: anxiety, depression Hematological/Lymphatic: denies: easy bleeding, easy bruising ED Past Medical Hx - Past Medical History Previous Medical History?: Yes Hx Hypertension: Yes Hx Diabetes: Yes Hx Asthma: Yes Additional medical history: Obesity - Surgical History Past Surgical History?: Yes Additional Surgical History: right leg surgery - Social History Smoking Status: Current Some Day Smoker Substance Use Type: Alcohol - Medications Home Medications: Home Medications Medication Instructions Recorded Confirmed Last Taken Type Lisinopril/Hydrochlorothiazide 1 tab PO QDAY #30 tab 04/03/19 Unknown Rx [Zestoretic 20-25 mg] Docusate Sodium [Colace] 100 mg PO BID #30 capsule 05/21/21 Unknown Rx Ondansetron [Zofran Odt] 4 mg PO Q8HR PRN #12 tab.rapdis 05/21/21 Unknown Rx metFORMIN [Glucophage] 500 mg PO BID #60 tablet 05/21/21 Unknown Rx polyethylene glycoL 3350 [Miralax 17 gm PO BID 7 Days #14 packet 05/21/21 Unknown Rx 3350] ED Physical Exam - General Limitations: No Limitations General appearance: alert, in no apparent distress - Head Head exam: Present: atraumatic, normocephalic - Eye Eye exam: Present: normal appearance - ENT ENT exam: Present: mucous membranes moist - Neck Neck exam: Present: normal inspection - Respiratory Respiratory exam: Present: normal lung sounds bilaterally, chest wall tenderness (left sided). Absent: respiratory distress, wheezes, rales, prolonged expiratory - Cardiovascular Cardiovascular Exam: Present: regular rate, normal rhythm. Absent: systolic murmur, diastolic murmur, rubs, gallop - GI/Abdominal GI/Abdominal exam: Present: soft, normal bowel sounds. Absent: distended, bruit, pulsatile mass - Rectal Rectal exam: Present: deferred - Extremities Exam Extremities exam: Present: normal inspection, full ROM. Absent: tenderness, pedal edema, calf tenderness - Back Exam Back exam: Present: normal inspection - Neurological Exam Neurological exam: Present: alert, oriented X3, CN II-XII intact, motor sensory deficit - Psychiatric Psychiatric exam: Present: normal affect, normal mood - Skin Skin exam: Present: warm, dry, intact, normal color. Absent: rash ED Course Vital Signs 07/06/22 15:38 Temperature 98.3 F Pulse Rate 94 H Respiratory 20 Rate Blood Pressure 161/77 [Right] O2 Sat by Pulse 97 Oximetry - Reevaluation(s) Reevaluation #1: 07/07/22 01:14 Patient had 2 normal troponins, so third, and was discharged home. ED Medical Decision Making - Lab Data Result diagrams: 07/06/22 16:50 07/06/22 16:50 Critical care attestation.: If time is entered above; I have spent that time in minutes in the direct care of this critically ill patient, excluding procedure time. ED Disposition Clinical Impression: Chest pain Qualifiers: Chest pain type: other chest pain Qualified Code(s): R07.89 - Other chest pain Disposition: 01 HOME / SELF CARE / HOMELESS Is pt being admited?: No Does the pt Need Aspirin: No Condition: Stable Instructions: Nonspecific Chest Pain, Adult Forms: Work/School Release Form(ED) Time of Disposition: 00:50
--- NOTE | 2022-07-07 09:08 | Electrocardiograph Report ---
[facility] Test Date: 2022-07-06 Test Time: 15:56:44 Pat Name: INDRA TANNER Department: Room: Gender: M Buffer Chrome: CODY : 1985 Requested By: TATYANA MARTINES Order Number: [id number] Reading MD: Justus Baptiste Measurements Intervals [place] Rate: 85 P: 125 TN: 157 QRS: -19 QRSD: 96 T: 18 QT: 369 QTc: 439 Interpretive Statements Sinus rhythm Low voltage, extremity and precordial leads No previous ECG available for comparison Electronically Signed On 07-07-2022 9:07:45 EDT by Justus Baptiste
== END 2022-07-07 00:53 | disposition home or self-care (01) ==
LOC: ED 14:57
DX: R07.89 Other chest pain (principal); I10 Essential (primary) hypertension; E11.9 Type 2 diabetes mellitus without complications; J45.909 Unspecified asthma, uncomplicated; F17.200 Nicotine dependence, unspecified, uncomplicated; Z72.89 Other problems related to lifestyle; Z98.890 Other specified postprocedural states; Z79.899 Other long term (current) drug therapy
CPT/HCPCS: 36415; 71046; 80053; 84484; 85025; 93005; 99283